=== PATIENT | female | born 1945 | race Caucasian/White ===

== ENCOUNTER 2018-01-12 15:56 | Emergency (ER) | payer MEDICARE, OTHER ==
[2018-01-12 16:22] VITALS: BP 148/80
--- NOTE | 2018-01-12 16:41 | EDM.PDOC ---
ED HPI GENERAL MEDICAL PROBLEM - General Chief Complaint: General Stated Complaint: Congestion Time Seen by Provider: 01/12/18 16:20 Source of Information: Reports: Patient History Limitations: Reports: No Limitations - History of Present Illness INITIAL COMMENTS - FREE TEXT/NARRATIVE: 72 YO WF presents to ER complaining of bilateral ear fullness with nasal congestion x 3 days. Pt reports she was seen in clinic 2 weeks ago and given an antibiotic for ear infection as well as cerumenex for cerumen buildup in both ears. Pt reports she felt better after antibiotics but states starting saturday she began to feel fullness in both ears without pain. Pt with mild nasal congestion. Pt denies headache, sore throat, facial pain or sinus problems. Pt denies shortness of breath fever/chills, body aches or chest pain. Onset Date: 01/10/18 Duration: Day(s): (3) Severity: Mild Improves with: Reports: Cold Therapy Worsens with: Reports: None Associated Symptoms: Reports: No Other Symptoms. Denies: Cough, cough w sputum , Fever/Chills, Malaise, Nausea/Vomiting, Rash, Shortness of Breath, Weakness Treatments TECHNOLOGY RISK INTERN: Reports: Other (see below) Other Treatments TECHNOLOGY RISK INTERN: dayquil capsules - Related Data Allergies Allergy/AdvReac Type Severity Reaction Status Date / Time No Known Drug Allergies Allergy Cannot Verified 01/12/18 16:10 Remember Home Meds: Home Meds Alendronate Sodium [Alendronate] 70 mg PO Q7D 06/09/15 [History] Pantoprazole Sodium 40 mg PO DAILY 01/12/18 [History] Pseudoephedrine HCl [Sudafed 12 Hour] 1 tab PO DAILY 01/12/18 [History] Past Medical History - Past Health History Medical/Surgical History: Denies Medical/Surgical History HEENT History: Reports: Impaired Vision Gastrointestinal History: Reports: GERD 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 Denies: Ear Discharge, Nose Pain, Throat Pain Respiratory: Reports: No Symptoms Cardiovascular: Reports: No Symptoms Endocrine: Reports: No Symptoms GI/Abdominal: Reports: No Symptoms : Reports: No Symptoms Musculoskeletal: Reports: No Symptoms Skin: Reports: No Symptoms Neurological: Reports: No Symptoms Psychiatric: Reports: No Symptoms Hematologic/Lymphatic: Reports: No Symptoms ED EXAM, GENERAL - Physical Exam Exam: See Below Exam Limited By: No Limitations General Appearance: Alert, WD/WN, No Apparent Distress Ear Exam: Bilateral Ear: Canal Normal (impacted cerumen bilaterally) Nose: Clear Rhinorrhea Throat/Mouth: Normal Inspection, Normal Lips, Normal Teeth, Normal Gums, Normal Oropharynx, Normal Voice, No Airway Compromise Head: Atraumatic, Normocephalic Neck: Normal Inspection, Supple, Non-Tender, Full Range of Motion Respiratory/Chest: No Respiratory Distress, Lungs Clear, Normal Breath Sounds, No Accessory Muscle Use, Chest Non-Tender Cardiovascular: Normal Peripheral Pulses, Regular Rate, Rhythm, No Edema, No Gallop, No JVD, No Murmur, No Rub GI/Abdominal: Normal Bowel Sounds, Soft, Non-Tender, No Organomegaly, No Distention, No Abnormal Bruit, No Mass Back Exam: Normal Inspection, Full Range of Motion, NT Extremities: Normal Inspection, Normal Range of Motion, Non-Tender, Normal Capillary Refill, No Pedal Edema Neurological: Alert, Oriented, CN II-XII Intact, Normal Cognition, Normal Gait, Normal Reflexes, No Motor/Sensory Deficits Psychiatric: Normal Affect, Normal Mood Skin Exam: Warm, Dry, Intact, Normal Color, No Rash Lymphatic: No Adenopathy Foreign Body Removal - Pre-Procedure Indication: impacted cerumen Consent Obtained: Reports: Patient Performing Doctor:: López Sheffield - Post-Procedure Findings:: irrigated both ears for cerumen removal- complete resolution Complications:: No Course - Vital Signs Last Recorded V/S: Last Vital Signs Temp 36.4 C 01/12/18 16:18 Pulse 80 01/12/18 16:18 Resp 16 01/12/18 16:18 BP 148/80 H 01/12/18 16:18 Pulse Ox 96 01/12/18 16:18 Departure - Departure Time of Disposition: 16:45 Disposition: Home, Self-Care 01 Condition: Good Clinical Impression: Impacted cerumen of both ears Allergic rhinitis Qualifiers: Allergic rhinitis seasonality: seasonal - Discharge Information Instructions: Earwax Buildup, Adult, Allergies, Adult, [id number] Referrals: Tonio Kamara MD [Primary Care Provider] - Additional Instructions: 1. irrigate ears 2. discharge home 3. zyrtec 10mg PO QD 4. benadryl 50mg PO QHS PRN 5. Afrin NS 2 sprays each nostril BID x 3 days 6. follow up in clinic for further evaluation and treatment as needed 7. return to ER for worsening symptoms - Assessment/Plan Assessment:: 1. Cerumen impaction 2. allergic rhinitis Plan: 1. irrigate ears 2. discharge home 3. zyrtec 10mg PO QD 4. benadryl 50mg PO QHS PRN 5. Afrin NS 2 sprays each nostril BID x 3 days 6. follow up in clinic for further evaluation and treatment as needed 7. return to ER for worsening symptoms
== END 2018-01-12 17:00 | disposition home or self-care (01) ==
LOC: KA.ED 15:56
DX: H61.23 Impacted cerumen, bilateral (principal); Z79.899 Other long term (current) drug therapy; K21.9 Gastro-esophageal reflux disease without esophagitis; Z90.49 Acquired absence of other specified parts of digestive tract
CPT/HCPCS: 69209; 99282; 99283

== ENCOUNTER 2019-07-17 17:50 | Emergency (ER) | payer MEDICARE, OTHER ==
[2019-07-17 18:04] VITALS: BP 158/99; PULSE 89
--- NOTE | 2019-07-17 18:18 | EDM.PDOC ---
ED HPI GENERAL MEDICAL PROBLEM - General Chief Complaint: General Stated Complaint: POSSIBLE BROKEN NOSE Time Seen by Provider: 07/17/19 18:07 Source of Information: Reports: Patient History Limitations: Reports: No Limitations - History of Present Illness INITIAL COMMENTS - FREE TEXT/NARRATIVE: She is a 74-year-old female who presents to the emergency department this evening with a complaint of facial trauma. Patient states that she was working in the barn and certainly stepped on a rake in the hand of the rake struck her in the face. Patient states that she did not lose consciousness. Incident occurred at about 1720 this evening. Patient states that she had a bloody nose and then resolved after holding pressure. Patient denies headache, neck pain, chest pain, shortness of breath, syncope or near syncope episode, blurry vision , or previous facial trauma. Onset: Today Onset Date: 07/17/19 Onset Time: 17:20 Duration: Minutes: Location: Reports: Face Quality: Reports: Ache Severity: Mild Improves with: Reports: None Worsens with: Reports: None Context: Reports: Trauma Associated Symptoms: Reports: No Other Symptoms Treatments CLERICAL ASSIGNER: Reports: Cold Therapy - Related Data Allergies Allergy/AdvReac Type Severity Reaction Status Date / Time gluten Allergy Diarrhea Verified 07/17/19 18:06 Home Meds: Home Meds Alendronate Sodium [Alendronate] 70 mg PO Q7D 06/09/15 [History] Pseudoephedrine HCl [Sudafed 12 Hour] 1 tab PO DAILY 01/12/18 [History] Pramipexole [Mirapex] 0.125 mg PO BEDTIME PRN 07/17/19 [History] RABEprazole Sodium [Rabeprazole Sodium] 20 mg PO DAILY 07/17/19 [History] Past Medical History - Past Health History Medical/Surgical History: Denies Medical/Surgical History HEENT History: Reports: Impaired Vision Gastrointestinal History: Reports: GERD 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 Constitutional: Reports: No Symptoms HEENT: Reports: Nosebleed, Nose Pain. Denies: Eye Pain, Vision Change Respiratory: Reports: No Symptoms Cardiovascular: Reports: No Symptoms Endocrine: Reports: No Symptoms GI/Abdominal: Reports: No Symptoms : Reports: No Symptoms Musculoskeletal: Reports: No Symptoms Skin: Reports: Bruising (Nose extending into bilateral maxilla) Neurological: Reports: No Symptoms Psychiatric: Reports: No Symptoms Hematologic/Lymphatic: Reports: No Symptoms Immunologic: Reports: No Symptoms ED EXAM, GENERAL - Physical Exam Exam: See Below Exam Limited By: No Limitations General Appearance: Alert, WD/WN, No Apparent Distress Eye Exam: Bilateral Eye: Normal Inspection Ears: Normal External Exam Nose: Nasal Deformity, Nasal Swelling, Other (Septal deviation without hematoma. Some blood remains.) Throat/Mouth: Normal Inspection, Normal Oropharynx, No Airway Compromise Head: Facial Swelling, Facial Tenderness, Sinus Tenderness Neck: Normal Inspection, Supple, Non-Tender, Full Range of Motion Respiratory/Chest: No Respiratory Distress, Lungs Clear Cardiovascular: Regular Rate, Rhythm, No Murmur Back Exam: Normal Inspection Extremities: Normal Inspection Neurological: Alert, Oriented, CN II-XII Intact, Normal Cognition, No Motor/ Sensory Deficits Psychiatric: Normal Affect, Normal Mood Skin Exam: Warm, Dry, Intact, Normal Color, No Rash Course - Vital Signs Last Recorded V/S: Last Vital Signs Temp 97.6 F 07/17/19 18:00 Pulse 89 07/17/19 18:00 Resp 18 07/17/19 18:00 BP 158/99 H 07/17/19 18:00 Pulse Ox 96 07/17/19 18:00 - Orders/Labs/Meds Orders: Active Orders 24 hr Category Date Time Status Max Facial Sinus wo Cont [CT] Stat Exams 07/17/19 18:07 Ordered - Radiology Interpretation Free Text/Narrative:: CT facial bones show acute nasal bone fracture - Re-Assessments/Exams Free Text/Narrative Re-Assessment/Exam: 07/17/19 19:02 Patient afebrile, vital signs stable. Steri-Strips applied. Epistaxis resolved. Departure - Departure Time of Disposition: 19:03 Disposition: Home, Self-Care 01 Condition: Good Clinical Impression: Nasal bones, closed fracture Qualifiers: Encounter type: initial encounter Qualified Code(s): S02.2XXA - Fracture of nasal bones, initial encounter for closed fracture - Discharge Information Instructions: Nasal Fracture, [id number] Referrals: Tonio Kamara MD [Primary Care Provider] - Additional Instructions: Follow-up at [facility] on Saturday for plastic surgery referral. Return to emergency department sooner if symptoms continue or worsen - My Orders Last 24 Hours: My Active Orders 07/17/19 18:07 Max Facial Sinus wo Cont [CT] Stat - Assessment/Plan Last 24 Hours: My Active Orders 07/17/19 18:07 Max Facial Sinus wo Cont [CT] Stat Assessment:: Nasal bone fracture Plan: Follow-up with plastic surgery
--- NOTE | 2019-07-17 18:50 | CT ---
[id number] CT/CT Facial Bones WO IV Exam: CT Facial Bones WO IV Indication:TRAUMA. STEPPED ON RAKE/SHOVEL AND OTHER END CAME UP Comparison: No prior imaging for comparison. Discussion: Soft tissue laceration and contusion overlying the nasal bones. Acute slightly impacted fracture of the nasal bones. No other evidence of an acute facial bone fracture. Left chronic maxillary sinusitis. Impression: Acute slightly impacted nasal bone fracture with overlying soft tissue laceration and contusion. Chronic findings are described above. Yoseph Mejia MD 07/17/19 [id number] Thank you for allowing us to participate in the care of your patient.
[2019-07-17] MEDS ORDERED: Oxymetazoline 0.05% Nasal Spray 15 ML Bottle NAS ONE (19:01)
== END 2019-07-17 19:15 | disposition home or self-care (01) ==
LOC: KA.ED 17:50
DX: S02.2XXA Fracture of nasal bones, initial encounter for closed fracture (principal); K21.9 Gastro-esophageal reflux disease without esophagitis; Z79.899 Other long term (current) drug therapy; Z91.018 Allergy to other foods; W22.8XXA Striking against or struck by other objects, initial encounter; Y93.89 Activity, other specified; Y92.71 Barn as the place of occurrence of the external cause
CPT/HCPCS: 70486; 99283; A9270; 99284

== ENCOUNTER 2021-10-07 15:52 | Emergency (ER) | payer MEDICARE, OTHER ==
[2021-10-07 15:58] VITALS: BP 142/80; PULSE 9
[2021-10-07] MEDS ORDERED: Ketorolac 30 MG/ML SDV IM ONE (16:44)
[2021-10-07] MEDS ORDERED: predniSONE 20 MG Tab PO ONE (16:45)
[2021-10-07] MEDS ORDERED: Cyclobenzaprine 10 MG Tab PO ONE ×2 (16:53→16:56)
[2021-10-07] MEDS ORDERED: predniSONE 10 MG Tab PO ONE (16:56)
== END 2021-10-07 17:15 | disposition home or self-care (01) ==
LOC: KA.ED 15:52
DX: M46.1 Sacroiliitis, not elsewhere classified (principal); M54.42 Lumbago with sciatica, left side; K21.9 Gastro-esophageal reflux disease without esophagitis; Z91.018 Allergy to other foods; Z79.899 Other long term (current) drug therapy
CPT/HCPCS: 72100; 96372; 99283; 99284; A9270-GY; J1885; J7512

== ENCOUNTER 2022-09-08 16:27 | Emergency (ER) | payer MEDICARE, OTHER ==
[2022-09-08 17:01] VITALS: BP 148/83; PULSE 94
== END 2022-09-08 17:10 | disposition home or self-care (01) ==
LOC: KA.ED 16:27
DX: I10 Essential (primary) hypertension (principal); K21.9 Gastro-esophageal reflux disease without esophagitis; Z91.018 Allergy to other foods; Z79.899 Other long term (current) drug therapy
CPT/HCPCS: 99283; 99284

== ENCOUNTER 2023-08-17 16:29 | Emergency (ER) | payer MEDICARE, OTHER ==
[2023-08-17] MEDS ORDERED: methylPREDNISolone Sodium Succinate 125 MG/2 ML SDV IVPUSH ONE (17:18)
[2023-08-17] MEDS ORDERED: Sodium Chloride 0.9% 10 ML Syringe FLUSH PRN (17:19)
[2023-08-17] MEDS ORDERED: predniSONE 20 MG Tab PO ONE (17:30)
[2023-08-17] MEDS ORDERED: Sodium Chloride 0.9% 50 ML ONE (17:35)
[2023-08-17] MEDS ORDERED: Sodium Chloride 0.9% 50 ML IV SCH (18:00)
[2023-08-17 18:02] VITALS: BP 144/89; PULSE 89
== END 2023-08-17 18:18 | disposition home or self-care (01) ==
LOC: KA.ED 16:29
DX: M54.41 Lumbago with sciatica, right side (principal); K21.9 Gastro-esophageal reflux disease without esophagitis; Z91.048 Other nonmedicinal substance allergy status; Z90.49 Acquired absence of other specified parts of digestive tract
CPT/HCPCS: 96365; 96375; 99283; 99283-25; J2800; J2930; J3490; J7512

== ENCOUNTER 2023-08-22 16:35 | Emergency (ER) | payer MEDICARE, OTHER ==
[2023-08-22 16:57] VITALS: BP 161/84; PULSE 90
== END 2023-08-22 17:33 | disposition home or self-care (01) ==
LOC: KA.ED 16:35
DX: M54.31 Sciatica, right side (principal); K21.9 Gastro-esophageal reflux disease without esophagitis; Z90.49 Acquired absence of other specified parts of digestive tract; Z79.899 Other long term (current) drug therapy; Z88.8 Allergy status to other drugs, medicaments and biological substances
CPT/HCPCS: 99283

== ENCOUNTER 2025-02-02 08:32 | Day surgery (SDC) | payer MEDICARE ==
[~2025-02-02 08:32] MED LIST: Sodium Chloride 0.9% 10 ML Syringe FLUSH PRN
[2025-02-02] MEDS: Lactated Ringers 1,000 ML IV SCH (08:39)
[2025-02-02] MEDS ORDERED: Propofol 200 MG/20 ML SDV ONE (08:40)
[2025-02-02] MEDS ORDERED: Midazolam 1 MG/ML 2 ML SDV ONE (08:40)
[2025-02-02 11:53] VITALS: BP 148/69; PULSE 74
== END 2025-02-02 11:10 | disposition home or self-care (01) ==
LOC: KA.SDS 08:32
PROVIDERS: ATTEND Family Medicine
DX: Z12.11 Encounter for screening for malignant neoplasm of colon (principal); R19.5 Other fecal abnormalities; D12.6 Benign neoplasm of colon, unspecified; K64.8 Other hemorrhoids; K57.30 Diverticulosis of large intestine without perforation or abscess without bleeding; I10 Essential (primary) hypertension; K21.9 Gastro-esophageal reflux disease without esophagitis; M81.0 Age-related osteoporosis without current pathological fracture; Z80.0 Family history of malignant neoplasm of digestive organs; Z79.899 Other long term (current) drug therapy
CPT/HCPCS: 00811; 99100; J2250; J2704; J7120